=== PATIENT | male | born 1970 | race Caucasian/White ===

== ENCOUNTER → 2021-11-21 | Outpatient (CLI) | payer OTHER | LOC: M PLAIMG 12:03 | PROVIDERS: ATTEND Physician Assistant | DX: R06.00 Dyspnea, unspecified (principal) ==

== ENCOUNTER → 2022-12-29 | Outpatient (CLI) | payer OTHER | LOC: M RAD 09:09 | PROVIDERS: ATTEND Internal Medicine Gastroenterology | DX: R14.0 Abdominal distension (gaseous) (principal); K76.0 Fatty (change of) liver, not elsewhere classified; R16.0 Hepatomegaly, not elsewhere classified ==

== ENCOUNTER 2023-01-12 06:56 | Day surgery (SDC) | payer OTHER ==
[~2023-01-12] VITALS: Ht 172.7 cm; Wt 108.9 kg
[~2023-01-12 06:56] MED LIST: BREO1INH3 INH; DORZ2SOL5 OU; FENO200C24 PO; INCR1INH INH; METF500T13 PO; MONT10TA97 PO; NS 1,000 ML IV ONE; OMEP1CAP73 PO; RAMI1CAP24 PO; SIMV40TA20 PO; XALA0.007 OU
[2023-01-12] MEDS ORDERED: METF-839 PO (07:42)
[2023-01-12] MEDS ORDERED: PROBCAP2 PO (07:45)
[2023-01-12] MEDS ORDERED: ECOT81TA5 PO (07:45)
[2023-01-12] MEDS ORDERED: NOXI1TAB PO (07:45)
[2023-01-12] MEDS ORDERED: fentaNYL 100 MCG/2 ML INJECTION As Ordered ONE (08:18)
[2023-01-12 09:39] VITALS: BP 142/97
[2023-01-12] MEDS ORDERED: LIDOCAINE 2% 100MG/5ML SDV (FOR ANES.) As Ordered ONE (11:10)
[2023-01-12] MEDS ORDERED: propofoL 200 MG/20 ML VIAL As Ordered ONE (11:10)
== END 2023-01-12 10:17 | disposition home or self-care (01) ==
LOC: M OPP 06:56
PROVIDERS: ATTEND Internal Medicine Gastroenterology
DX: K64.4 Residual hemorrhoidal skin tags (principal); K64.8 Other hemorrhoids; K52.9 Noninfective gastroenteritis and colitis, unspecified; K29.70 Gastritis, unspecified, without bleeding; K31.7 Polyp of stomach and duodenum; K30 Functional dyspepsia; Z79.02 Long term (current) use of antithrombotics/antiplatelets; Z79.51 Long term (current) use of inhaled steroids; Z79.82 Long term (current) use of aspirin; Z79.84 Long term (current) use of oral hypoglycemic drugs; Z88.8 Allergy status to other drugs, medicaments and biological substances; Z91.013 Allergy to seafood
CPT/HCPCS: 43239; 45380; 88305; J3010